=== PATIENT | female | born 1985 | race Caucasian/White ===

== ENCOUNTER 2018-12-05 12:51 | Emergency (ER) | payer BC ==
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
[2018-12-05 13:50] LABS: BLOOD UREA NITROGEN,BUN 14 mg/dL (7.0-18.0); CARBON DIOXIDE,CO2 27.9 mmol/L (21.0-32.0); CHLORIDE,CL 106 mmol/L (98-107); GLUCOSE RANDOM 99 mg/dL (74-106); POTASSIUM,K 4.3 mmol/L (3.5-5.1); SODIUM,NA 143 mmol/L (136-145)
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
[2018-12-05 15:06] VITALS: BP 127/75
== END 2018-12-05 15:06 | disposition home or self-care (01) ==
LOC: MW.ED 12:51
DX: S40.012A Contusion of left shoulder, initial encounter (principal); S80.11XA Contusion of right lower leg, initial encounter; S00.531A Contusion of lip, initial encounter; N39.0 Urinary tract infection, site not specified; C95.90 Leukemia, unspecified not having achieved remission; F41.9 Anxiety disorder, unspecified; F32.9 Major depressive disorder, single episode, unspecified; F17.210 Nicotine dependence, cigarettes, uncomplicated; Z91.048 Other nonmedicinal substance allergy status; Z88.5 Allergy status to narcotic agent; Z88.8 Allergy status to other drugs, medicaments and biological substances; Z85.038 Personal history of other malignant neoplasm of large intestine; Z79.899 Other long term (current) drug therapy; Y04.2XXA Assault by strike against or bumped into by another person, initial encounter
CPT/HCPCS: 36415; 70450; 70450-26; 70486; 70486-26; 71045; 71045-26; 73030-26-LT; 73030-LT; 80053; 81001; 81025; 85025; 85610; 87086; 87088; 87186; 99284; 99284-25

== ENCOUNTER 2019-01-16 14:08 | Emergency (ER) | payer BC ==
[2019-01-16 14:28] VITALS: BP 149/85; PULSE 101
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
== END 2019-01-16 14:51 | disposition home or self-care (01) ==
LOC: MW.ED 14:08
DX: L50.9 Urticaria, unspecified (principal); E66.9 Obesity, unspecified; Z88.5 Allergy status to narcotic agent; Z88.8 Allergy status to other drugs, medicaments and biological substances; Z91.048 Other nonmedicinal substance allergy status; Z85.038 Personal history of other malignant neoplasm of large intestine; Z98.890 Other specified postprocedural states; Z68.42 Body mass index [BMI] 45.0-49.9, adult
CPT/HCPCS: 99282

== ENCOUNTER 2019-05-02 17:12 | Emergency (ER) | payer BC, OTHER ==
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
[2019-05-02] MEDS ORDERED: Ketorolac 60 MG/2 ML SDV IM ONE (17:48)
[2019-05-02 17:53] VITALS: BP 129/75; PULSE 106
--- NOTE | 2019-05-02 18:24 | CR ---
Right ankle: Right ankle: 3 views of the right ankle were obtained. Old healed fractures are noted within the distal tibia and fibula. Plate and screws remain within the fibula. Mild degenerative change is noted within the midfoot. No acute fracture or dislocation is seen. Osteopenia is present. Impression: 1. Findings as noted above. 2. Nothing acute is appreciated. Diagnostic code #2 This report was dictated in [place] Standard Time
== END 2019-05-02 19:10 | disposition home or self-care (01) ==
LOC: MW.ED 17:12
DX: S99.911A Unspecified injury of right ankle, initial encounter (principal); E66.9 Obesity, unspecified; F17.210 Nicotine dependence, cigarettes, uncomplicated; Z88.5 Allergy status to narcotic agent; Z91.09 Other allergy status, other than to drugs and biological substances; W00.0XXA Fall on same level due to ice and snow, initial encounter; X50.1XXA Overexertion from prolonged static or awkward postures, initial encounter
CPT/HCPCS: 73610; 96372; 99283; J1885; 99282

== ENCOUNTER 2019-10-31 21:33 | Emergency (ER) | payer MEDICAID ==
[2019-10-31 21:47] VITALS: BP 138/75; PULSE 102
[2019-10-31] MEDS ORDERED: Ketorolac 60 MG/2 ML SDV IM ONE (21:51)
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
--- NOTE | 2019-10-31 23:04 | CR ---
Indication: Pain Technique: Three views, 4 films Comparison: None Findings: Bones: No clear acute fracture. Deformity of the proximal fibular diaphysis consistent with an old healed fracture. Status post anterior cruciate ligament number ligament repair as well as a bracket at the medial tibial plateau. Posterior lag screws at the distal tibia with the screws backed out approximately 7 millimeters. Joint spaces: Trace knee effusion. No dislocation. Soft tissues: Minimal soft tissue swelling. Dictated by Maulik Lepe MD @ Oct 31 2019 10:58PM Signed by Dr. Maulik Lepe @ Oct 31 2019 11:03PM
== END 2019-10-31 22:56 | disposition home or self-care (01) ==
LOC: MW.ED 21:33
DX: M23.91 Unspecified internal derangement of right knee (principal); F41.9 Anxiety disorder, unspecified; F32.9 Major depressive disorder, single episode, unspecified; E66.9 Obesity, unspecified; Z68.41 Body mass index [BMI] 40.0-44.9, adult; Z91.048 Other nonmedicinal substance allergy status; Z88.8 Allergy status to other drugs, medicaments and biological substances; Z88.5 Allergy status to narcotic agent; Z79.899 Other long term (current) drug therapy
CPT/HCPCS: 73562; 96372; 99283; J1885

== ENCOUNTER 2019-11-29 07:54 | Day surgery (SDC) | payer MEDICAID ==
[~2019-11-29 07:54] MED LIST: Lactated Ringers 1,000 ML IV SCH
[2019-11-29] MEDS ORDERED: Propofol 200 MG/20 ML SDV ONE ×3 (09:01→09:59)
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
--- NOTE | 2019-11-29 10:30 | PCM.POSTAN ---
POST ANESTHESIA ASSESSMENT - MENTAL STATUS Mental Status: Alert - VITAL SIGNS Vital Signs: Last Vital Signs Temp 97.9 F 11/29/19 10:09 Pulse 82 11/29/19 10:26 Resp 20 11/29/19 10:26 BP 145/91 H 11/29/19 10:26 Pulse Ox 95 11/29/19 10:26 - RESPIRATORY Respiratory Status: Respiratory Rate WNL, Airway Patent, O2 Saturation Stable - CARDIOVASCULAR CV Status: Pulse Rate WNL, Blood Pressure Stable - GASTROINTESTINAL GI Status: No Symptoms - POST OP HYDRATION Hydration Status: Adequate & Stable
--- NOTE | 2019-11-29 10:33 | PCM.OPNOTE ---
- General Post-Op/Procedure Note Date of Surgery/Procedure: 11/29/19 Operative Procedure(s): attempted colonoscopy Findings: see [id number] Pre Op Diagnosis: hx of rectal cancer s/p LAR Post-Op Diagnosis: Same Anesthesia Technique: Moderate Sedation Primary Surgeon: Flo Reis Complications: None Condition: Good Free Text/Narrative:: Intake & Output 11/28/19 11/29/19 11/29/19 22:59 06:59 14:59 Intake Total 700 Balance 700
--- NOTE | 2019-11-29 10:37 | PCM48HPAN ---
Post Anesthesia Note - EVALUATION WITHIN 48HRS OF ANESTHETIC Vital Signs in Normal Range: Yes Patient Participated in Evaluation: Yes Respiratory Function Stable: Yes Airway Patent: Yes Cardiovascular Function Stable: Yes Hydration Status Stable: Yes Pain Control Satisfactory: Yes Nausea and Vomiting Control Satisfactory: Yes Mental Status Recovered: Yes Vital Signs: Last Vital Signs Temp 97.9 F 11/29/19 10:09 Pulse 82 11/29/19 10:26 Resp 20 11/29/19 10:26 BP 145/91 H 11/29/19 10:26 Pulse Ox 95 11/29/19 10:26
[2019-11-29 10:44] VITALS: BP 118/85; PULSE 87
--- NOTE | 2019-11-29 16:32 | OR ---
SURGEON: Flo Reis MD DATE OF PROCEDURE: 11/29/2019 PREOPERATIVE DIAGNOSIS: History of rectal cancer, status post low anterior resection. POSTOPERATIVE DIAGNOSIS: Attempted and aborted colonoscopy. PROCEDURE PERFORMED: Attempted and aborted colonoscopy. PRIMARY SURGEON: Flo Reis MD COMPLICATIONS: None. FINDINGS: Throughout the short distance of the colonoscopy, did not find anything that is suspicious. However, we were able to carry out the exam to only a short distance. During the short examination, do not find anything that is abnormal or concerning. DESCRIPTION OF PROCEDURE: The patient was taken to endoscopy room and placed in a decubitus position. Time-out was being called, patient identified, procedure identified. Procedure then started. First started with a digital examination and there was no mass palpated. A well-lubricated colonoscope was gently inserted through the anal opening and gently negotiated and advanced the scope. During the procedure, it was technically a challenge because there was quite a lot of opaque yellow liquid stool that required irrigation, and despite numerous attempts, we still had some difficulty in distending the colon. The scope attempted all the way to 36 cm and was not able to distend the colon and also more challenge because of the complete opaque liquid stool. It is not semi-formed stool, it is completely liquid, but because of the visibility and technically a challenge, at 36 cm the colonoscopy procedure aborted. During the short distance examination, do not find anything that is grossly abnormal or concerning. We will refer the patient to GI for further examination. The patient tolerated the procedure well. There were no intraoperative complications. Dr. Reis present through the whole procedure. LOLA / CHUN /[id number]
== END 2019-11-29 11:10 | disposition home or self-care (01) ==
LOC: MW.SDS 07:54
PROVIDERS: ATTEND Surgery
DX: Z12.11 Encounter for screening for malignant neoplasm of colon (principal); F41.9 Anxiety disorder, unspecified; E78.00 Pure hypercholesterolemia, unspecified; Z85.048 Personal history of other malignant neoplasm of rectum, rectosigmoid junction, and anus; E66.01 Morbid (severe) obesity due to excess calories; Z88.8 Allergy status to other drugs, medicaments and biological substances; Z79.899 Other long term (current) drug therapy; F17.210 Nicotine dependence, cigarettes, uncomplicated; Z68.42 Body mass index [BMI] 45.0-49.9, adult; Z85.6 Personal history of leukemia; Z98.890 Other specified postprocedural states; Z88.5 Allergy status to narcotic agent; Z91.048 Other nonmedicinal substance allergy status
CPT/HCPCS: 81025; J2704; J7120

== ENCOUNTER 2020-01-15 13:14 | Inpatient (IN) | payer MEDICAID, OTHER ==
[2020-01-15] MEDS ORDERED: Sodium Chloride 0.9% 10 ML Syringe FLUSH PRN (13:16)
[2020-01-15] MEDS ORDERED: Sodium Chloride 0.9% 1,000 ML IV ONE (13:16)
[2020-01-15] MEDS ORDERED: Sodium Chloride 0.9% 2.5 ML Syringe FLUSH PRN (13:16)
[2020-01-15] MEDS ORDERED: Ondansetron 4 MG/2 ML SDV IVPUSH ONE (13:22)
[2020-01-15] MEDS ORDERED: HYDROmorphone 1 MG/ML Syringe IVPUSH ONE (13:23)
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
[2020-01-15 13:57] LABS: BLOOD UREA NITROGEN,BUN 8 mg/dL (7.0-18.0); CHLORIDE,CL 99 mmol/L (98-107); GLUCOSE RANDOM 96 mg/dL (74-106); LIPASE 35 U/L (73-393); SODIUM,NA 134 mmol/L (136-145)
[2020-01-15 14:19] LABS: CARBON DIOXIDE,CO2 25.2 mmol/L (21.0-32.0)
[2020-01-15] MEDS ORDERED: Iopamidol 755 MG/ML 500 ML Multipack Bottle IVPUSH ONE (15:58)
--- NOTE | 2020-01-15 16:40 | CT ---
HISTORY: Left lower quadrant pain. TECHNIQUE: CT abdomen and pelvis with IV contrast. COMPARISON: CT abdomen and pelvis 08/23/2017. FINDINGS: Abdomen: No liver lesions. Cholecystectomy. Unchanged bile duct prominence consistent with postcholecystectomy change. No pancreatic mass or pancreatic duct dilation. No spleen lesions. No adrenal nodules. Kidneys enhance symmetrically. No renal mass. No hydronephrosis. Pelvis valuation is limited by artifact from right pelvic surgical hardware. Rectal anastomosis. Wall thickening of the distal sigmoid colon with surrounding fat infiltration. 3 x 2.7 cm cystic structure in the left adnexa abutting the thickened segment of sigmoid colon is likely the left ovary, less likely an abscess. No dilated bowel. Appendix is normal. No significant free fluid. No pneumoperitoneum. No lymphadenopathy. Abdominal aorta is normal caliber. IVC filter. Pelvis: No lymphadenopathy. Musculoskeletal: Right reconstruction with combination of plates and screws. In fusion of the right sacroiliac joint. Degenerative changes of the left sacroiliac joint. Geographic sclerosis in the superior femoral head compatible with osteonecrosis. Degenerative changes of the spine. Lower chest: Mild atelectasis in both lung bases. IMPRESSION: 1. Wall thickening of the distal sigmoid colon with surrounding fat stranding may be due to colitis. 3 cm cystic structure in the left adnexa abutting the thickened segment of sigmoid colon is likely the left ovary, less likely an abscess. In the absence of clinical symptoms of colitis sigmoid mass should be considered and colonoscopy would be recommended. 2. Cholecystectomy. Please note that all CT scans at this facility use dose modulation, iterative reconstruction, and/or weight-based dosing when appropriate to reduce radiation dose to as low as reasonably achievable. Dictated by Prabhu Lizarraga MD @ Jan 15 2020 4:28PM Signed by Dr. Prabhu Lizarraga @ Jan 15 2020 4:38PM
[2020-01-15] MEDS ORDERED: Piperacillin/Tazobactam 4.5 GM in Sodium Chloride 0.9% 100 ML IV ONE (16:51)
[2020-01-15] MEDS ORDERED: HYDROmorphone 2 MG/ML Syringe IVPUSH ONE (16:52)
[2020-01-15] MEDS ORDERED: Ondansetron 4 MG/2 ML SDV IVPUSH PRN (17:47)
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
[2020-01-15] MEDS: HYDROmorphone 2 MG/ML Syringe IVPUSH PRN (20:53)
[2020-01-15] MEDS: Heparin Sodium 5,000 Units/ML Vial SUBCUT SCH (20:54)
[2020-01-15] MEDS: Sodium Chloride 0.9% 1,000 ML IV SCH (20:55)
[2020-01-15] MEDS: Piperacillin/Tazobactam 3.375 GM in Sodium Chloride 0.9% 50 ML IV SCH (22:10)
[2020-01-16] MEDS: HYDROmorphone 2 MG/ML Syringe IVPUSH PRN ×4 (02:21→19:32)
[2020-01-16] MEDS: Heparin Sodium 5,000 Units/ML Vial SUBCUT SCH ×3 (02:22→17:40)
[2020-01-16] MEDS: Piperacillin/Tazobactam 3.375 GM in Sodium Chloride 0.9% 50 ML IV SCH ×4 (04:54→22:08)
[2020-01-16] MEDS: Sodium Chloride 0.9% 1,000 ML IV SCH ×4 (04:55→18:38)
[2020-01-16 06:20] LABS: BLOOD UREA NITROGEN,BUN 9 mg/dL (7.0-18.0); CARBON DIOXIDE,CO2 26.6 mmol/L (21.0-32.0); CHLORIDE,CL 101 mmol/L (98-107); GLUCOSE RANDOM 98 mg/dL (74-106); POTASSIUM,K 3.5 mmol/L (3.5-5.1); SODIUM,NA 137 mmol/L (136-145)
--- NOTE | 2020-01-16 10:14 | PCM.PN ---
- General Info Date of Service: 01/16/20 Admission Dx/Problem (Free Text): Admission Diagnosis/Problem Admission Diagnosis/Problem Colitis Subjective Update: Just received pain medication, reports pain to lower abdomen continues, mildly improved. Not talkative. No chest pain or SOB. No fevers or chills. Functional Status: Reports: Pain Controlled, Ambulating, Urinating - Review of Systems General: Reports: Malaise HEENT: Reports: No Symptoms. Denies: Headaches, Visual Changes Pulmonary: Reports: No Symptoms. Denies: Shortness of Breath Cardiovascular: Reports: No Symptoms. Denies: Chest Pain Gastrointestinal: Reports: Abdominal Pain, Nausea. Denies: Diarrhea, Vomiting Genitourinary: Reports: No Symptoms. Denies: Dysuria, Frequency Musculoskeletal: Reports: No Symptoms Skin: Reports: No Symptoms Neurological: Reports: No Symptoms Psychiatric: Reports: No Symptoms - Patient Data Vitals - Most Recent: Last Vital Signs Temp 97.4 F 01/16/20 08:38 Pulse 107 H 01/16/20 08:38 Resp 18 01/16/20 08:38 BP 100/72 01/16/20 08:38 Pulse Ox 93 L 01/16/20 08:38 Weight - Most Recent: 123.241 kg I&O - Last 24 Hours: Intake & Output 01/15/20 01/16/20 01/16/20 22:59 06:59 14:59 Intake Total 50 Output Total 0 Balance 50 Lab Results Last 24 Hours: Laboratory Results - last 24 hr 01/15/20 01/15/20 01/15/20 Range/Units 13:26 13:26 13:26 WBC 22.40 H (4.0-11.0) K/uL RBC 4.32 (4.30-5.90) M/uL Hgb 13.5 (12.0-16.0) g/dL Hct 41.5 (36.0-46.0) % MCV 96.1 (80.0-98.0) fL MCH 31.3 (27.0-32.0) pg MCHC 32.5 (31.0-37.0) g/dL RDW Std Deviation 51.3 (28.0-62.0) fl RDW Coeff of Dre 14 (11.0-15.0) % Plt Count 239 (150-400) K/uL MPV 8.60 (7.40-12.00) fL Neut % (Auto) 85.0 H (48.0-80.0) % Lymph % (Auto) 8.5 L (16.0-40.0) % [place] % (Auto) 6.2 (0.0-15.0) % Eos % (Auto) 0.2 (0.0-7.0) % Baso % (Auto) 0.1 (0.0-1.5) % Neut # (Auto) 19.0 H (1.4-5.7) K/uL Lymph # (Auto) 1.9 (0.6-2.4) K/uL [place] # (Auto) 1.4 H (0.0-0.8) K/uL Eos # (Auto) 0.1 (0.0-0.7) K/uL Baso # (Auto) 0.0 (0.0-0.1) K/uL Nucleated RBC % 0.0 /100WBC Nucleated RBCs # 0 K/uL Lactate (0.20-2.00) mmol/L Sodium 134 L (136-145) mmol/L Potassium 4.0 (3.5-5.1) mmol/L Chloride 99 (98-107) mmol/L Carbon Dioxide 25.2 (21.0-32.0) mmol/L BUN 8 (7.0-18.0) mg/dL Creatinine 0.7 (0.6-1.0) mg/dL Est Cr Clr Drug Dosing 92.79 mL/min Estimated GFR (MDRD) > 60.0 ml/min Glucose 96 (74-106) mg/dL Calcium 9.1 (8.5-10.1) mg/dL Total Bilirubin 1.3 H (0.2-1.0) mg/dL AST 25 (15-37) IU/L ALT 30 (14-63) IU/L Alkaline Phosphatase 118 H (46-116) U/L Total Protein 7.5 (6.4-8.2) g/dL Albumin 3.6 (3.4-5.0) g/dL Globulin 3.9 (2.6-4.0) g/dL Albumin/Globulin Ratio 0.9 (0.9-1.6) Lipase 35 L (73-393) U/L HCG, Qual NEGATIVE (NEG) Urine Color Urine Appearance Urine pH (5.0-8.0) Ur Specific [place] (1.001-1.035) Urine Protein (NEGATIVE) mg/dL Urine Glucose (UA) (NEGATIVE) mg/dL Urine Ketones (NEGATIVE) mg/dL Urine Occult Blood (NEGATIVE) Urine Nitrite (NEGATIVE) Urine Bilirubin (NEGATIVE) Urine Urobilinogen (<2.0) EU/dL Ur Leukocyte Esterase (NEGATIVE) Urine RBC (0-2/HPF) Urine WBC (0-5/HPF) Ur Epithelial Cells (NONE-FEW) Urine Bacteria (NEGATIVE) Urine Mucus (NONE-MOD) SARS-CoV-2 RNA (MONTY) (NEGATIVE) 01/15/20 01/15/20 01/16/20 Range/Units 14:10 16:50 04:44 WBC (4.0-11.0) K/uL RBC (4.30-5.90) M/uL Hgb (12.0-16.0) g/dL Hct (36.0-46.0) % MCV (80.0-98.0) fL MCH (27.0-32.0) pg MCHC (31.0-37.0) g/dL RDW Std Deviation (28.0-62.0) fl RDW Coeff of Dre (11.0-15.0) % Plt Count (150-400) K/uL MPV (7.40-12.00) fL Neut % (Auto) (48.0-80.0) % Lymph % (Auto) (16.0-40.0) % [place] % (Auto) (0.0-15.0) % Eos % (Auto) (0.0-7.0) % Baso % (Auto) (0.0-1.5) % Neut # (Auto) (1.4-5.7) K/uL Lymph # (Auto) (0.6-2.4) K/uL [place] # (Auto) (0.0-0.8) K/uL Eos # (Auto) (0.0-0.7) K/uL Baso # (Auto) (0.0-0.1) K/uL Nucleated RBC % /100WBC Nucleated RBCs # K/uL Lactate 1.1 (0.20-2.00) mmol/L Sodium (136-145) mmol/L Potassium (3.5-5.1) mmol/L Chloride (98-107) mmol/L Carbon Dioxide (21.0-32.0) mmol/L BUN (7.0-18.0) mg/dL Creatinine (0.6-1.0) mg/dL Est Cr Clr Drug Dosing mL/min Estimated GFR (MDRD) ml/min Glucose (74-106) mg/dL Calcium (8.5-10.1) mg/dL Total Bilirubin (0.2-1.0) mg/dL AST (15-37) IU/L ALT (14-63) IU/L Alkaline Phosphatase (46-116) U/L Total Protein (6.4-8.2) g/dL Albumin (3.4-5.0) g/dL Globulin (2.6-4.0) g/dL Albumin/Globulin Ratio (0.9-1.6) Lipase (73-393) U/L HCG, Qual (NEG) Urine Color YELLOW Urine Appearance HAZY Urine pH 5.5 (5.0-8.0) Ur Specific [place] 1.025 (1.001-1.035) Urine Protein NEGATIVE (NEGATIVE) mg/dL Urine Glucose (UA) NEGATIVE (NEGATIVE) mg/dL Urine Ketones 15 H (NEGATIVE) mg/dL Urine Occult Blood TRACE-INTACT H (NEGATIVE) Urine Nitrite NEGATIVE (NEGATIVE) Urine Bilirubin NEGATIVE (NEGATIVE) Urine Urobilinogen 0.2 (<2.0) EU/dL Ur Leukocyte Esterase SMALL H (NEGATIVE) Urine RBC 0-3 (0-2/HPF) Urine WBC 15-20 (0-5/HPF) Ur Epithelial Cells FEW (NONE-FEW) Urine Bacteria 1+ H (NEGATIVE) Urine Mucus LIGHT (NONE-MOD) SARS-CoV-2 RNA (MONYT) NEGATIVE (NEGATIVE) 01/16/20 01/16/20 Range/Units 05:34 05:34 WBC 21.68 H (4.0-11.0) K/uL RBC 4.02 L (4.30-5.90) M/uL Hgb 12.4 (12.0-16.0) g/dL Hct 39.4 (36.0-46.0) % MCV 98.0 (80.0-98.0) fL MCH 30.8 (27.0-32.0) pg MCHC 31.5 (31.0-37.0) g/dL RDW Std Deviation 52.8 (28.0-62.0) fl RDW Coeff of Dre 15 (11.0-15.0) % Plt Count 226 (150-400) K/uL MPV 8.40 (7.40-12.00) fL Neut % (Auto) 87.4 H (48.0-80.0) % Lymph % (Auto) 6.7 L (16.0-40.0) % [place]eman % (Auto) 5.7 (0.0-15.0) % Eos % (Auto) 0.1 (0.0-7.0) % Baso % (Auto) 0.1 (0.0-1.5) % Neut # (Auto) 19.0 H (1.4-5.7) K/uL Lymph # (Auto) 1.5 (0.6-2.4) K/uL [place] # (Auto) 1.2 H (0.0-0.8) K/uL Eos # (Auto) 0.0 (0.0-0.7) K/uL Baso # (Auto) 0.0 (0.0-0.1) K/uL Nucleated RBC % 0.0 /100WBC Nucleated RBCs # 0 K/uL Lactate (0.20-2.00) mmol/L Sodium 137 (136-145) mmol/L Potassium 3.5 (3.5-5.1) mmol/L Chloride 101 (98-107) mmol/L Carbon Dioxide 26.6 (21.0-32.0) mmol/L BUN 9 (7.0-18.0) mg/dL Creatinine 0.7 (0.6-1.0) mg/dL Est Cr Clr Drug Dosing 92.79 mL/min Estimated GFR (MDRD) > 60.0 ml/min Glucose 98 (74-106) mg/dL Calcium 8.5 (8.5-10.1) mg/dL Total Bilirubin 0.9 (0.2-1.0) mg/dL AST 10 L (15-37) IU/L ALT 26 (14-63) IU/L Alkaline Phosphatase 114 (46-116) U/L Total Protein 6.7 (6.4-8.2) g/dL Albumin 3.0 L (3.4-5.0) g/dL Globulin 3.7 (2.6-4.0) g/dL Albumin/Globulin Ratio 0.8 L (0.9-1.6) Lipase (73-393) U/L HCG, Qual (NEG) Urine Color Urine Appearance Urine pH (5.0-8.0) Ur Specific [place] (1.001-1.035) Urine Protein (NEGATIVE) mg/dL Urine Glucose (UA) (NEGATIVE) mg/dL Urine Ketones (NEGATIVE) mg/dL Urine Occult Blood (NEGATIVE) Urine Nitrite (NEGATIVE) Urine Bilirubin (NEGATIVE) Urine Urobilinogen (<2.0) EU/dL Ur Leukocyte Esterase (NEGATIVE) Urine RBC (0-2/HPF) Urine WBC (0-5/HPF) Ur Epithelial Cells (NONE-FEW) Urine Bacteria (NEGATIVE) Urine Mucus (NONE-MOD) SARS-CoV-2 RNA (MONTY) (NEGATIVE) [place] Results Last 24 Hours: Microbiology 01/15/20 14:20 Anaerobic Blood Culture - Final Blood - Venous - Lab Draw Med Orders - Current: Current Medications Heparin Sodium (Porcine) (Heparin Sodium) 5,000 units SUBCUT Q8H [facility] Last Admin: 01/16/20 02:22 Dose: 5,000 units Documented by: Hydromorphone HCl (Dilaudid) 1 mg IVPUSH Q2H PRN PRN Reason: Pain (severe 7-10) Last Admin: 01/16/20 08:40 Dose: 1 mg Documented by: Piperacillin Sod/Tazobactam (Sod 3.375 gm/ Sodium Chloride) 50 mls @ 100 mls/hr IV Q6H [facility] Last Admin: 01/16/20 04:54 Dose: 100 mls/hr Documented by: Sodium Chloride (Normal Saline) 1,000 mls @ 125 mls/hr IV ASDIRECTED [facility] Last Admin: 01/16/20 04:55 Dose: 125 mls/hr Documented by: Ondansetron HCl (Zofran) 4 mg IVPUSH Q4H PRN PRN Reason: Nausea Sodium Chloride (Saline Flush) 10 ml FLUSH ASDIRECTED PRN PRN Reason: Keep Vein Open Last Admin: 01/15/20 13:36 Dose: 10 ml Documented by: Sodium Chloride (Saline Flush) 2.5 ml FLUSH ASDIRECTED PRN PRN Reason: Keep Vein Open Last Admin: 01/15/20 13:36 Dose: 2.5 ml Documented by: Discontinued Medications Hydromorphone HCl (Dilaudid) 1 mg IVPUSH ONETIME ONE Stop: 01/15/20 13:24 Last Admin: 01/15/20 13:35 Dose: 1 mg Documented by: Hydromorphone HCl (Dilaudid) 0.5 mg IVPUSH ONETIME ONE Stop: 01/15/20 16:53 Last Admin: 01/15/20 17:00 Dose: 0.5 mg Documented by: Sodium Chloride (Normal Saline) 1,000 mls @ 999 mls/hr IV STAT ONE Stop: 01/15/20 14:16 Last Admin: 01/15/20 13:34 Dose: 999 mls/hr Documented by: Piperacillin Sod/Tazobactam (Sod 4.5 gm/ Sodium Chloride) 100 mls @ 100 mls/hr IV ONETIME ONE Stop: 01/15/20 17:50 Last Admin: 01/15/20 17:01 Dose: 100 mls/hr Documented by: Iopamidol (Isovue Multipack-370 (76%)) 100 ml IVPUSH ONETIME ONE Stop: 01/15/20 15:59 Last Admin: 01/15/20 15:59 Dose: 100 ml Documented by: Ondansetron HCl (Zofran) 4 mg IVPUSH ONETIME ONE Stop: 01/15/20 13:23 Last Admin: 01/15/20 13:35 Dose: 4 mg Documented by: - Exam General: Alert, Oriented, No Acute Distress. No: Cooperative (not talkative, bu t when directly asked something she answers, drowsy from pain medications) Lungs: Clear to Auscultation, Normal Respiratory Effort Cardiovascular: Regular Rate, Regular Rhythm GI/Abdominal Exam: Normal Bowel Sounds, Soft, Non-Tender (to palaption but reports pain is there when she lays down), Other (obese abdomen) Extremities: Normal Inspection, Normal Range of Motion, Non-Tender, Pedal Edema (mild +1 non pitting) Wound/Incisions: Other (chronic skin discoloration to bilateral lower legs) Neurological: No New Focal Deficit Psy/Mental Status: Alert, Normal Affect, Normal Mood Sepsis Event Note - Evaluation Sepsis Screening Result: No Definite Risk - Focused Exam Vital Signs: Vital Signs Temp Pulse Resp BP Pulse Ox 01/16/20 08:38 97.4 F 107 H 18 100/72 93 L 01/16/20 05:02 97.8 F 97 14 113/74 90 L 01/16/20 00:33 97.8 F 114 H 18 103/64 92 L - Problem List & Annotations (1) History of colon cancer SNOMED Code(s): 511486777 Code(s): Z85.038 - PERSONAL HISTORY OF MALIGNANT NEOPLASM OF LARGE INTESTINE Status: Acute Current Visit: Yes (2) Colitis SNOMED Code(s): 78928235 Code(s): K52.9 - NONINFECTIVE GASTROENTERITIS AND COLITIS, UNSPECIFIED Status: Acute Current Visit: Yes (3) Abdominal pain SNOMED Code(s): 60762087 Code(s): R10.9 - UNSPECIFIED ABDOMINAL PAIN Status: Acute Priority: High Current Visit: No Qualifiers: Abdominal location: upper abdomen, unspecified Qualified Code(s): R10.10 - Upper abdominal pain, unspecified (4) Obesity (BMI 30-39.9) SNOMED Code(s): 698140208, 527502365 Code(s): E66.9 - OBESITY, UNSPECIFIED Status: Acute Priority: Medium Current Visit: No (5) UTI (urinary tract infection) SNOMED Code(s): 40218392 Code(s): N39.0 - URINARY TRACT INFECTION, SITE NOT SPECIFIED Status: Acute Current Visit: No Qualifiers: Urinary tract infection type: site unspecified Hematuria presence: without hematuria Qualified Code(s): N39.0 - Urinary tract infection, site not specified - Problem List Review Problem List Initiated/Reviewed/Updated: Yes - My Orders Last 24 Hours: My Active Orders 01/16/20 09:17 Transvaginal Non OB [US] Urgent - Plan Plan:: 34 yo female admitted with colitis. 1. Colitis - Continue bowel rest - IV fluids - Continue Zosyn. - Pain control with IV Dilaudid. - Cultures are pending, still awaiting collection for stool - Did have possible cystis L ovary, will obtain transvaginal US today to further evaluate VTE prophylaxis: Heparin Dispo: 2 days
[2020-01-16] MEDS ORDERED: Sodium Chloride 0.9% 2.5 ML Syringe FLUSH PRN (10:15)
--- NOTE | 2020-01-16 16:07 | US ---
INDICATION: Pain. Cystic left ovary. TECHNIQUE: Transabdominal and transvaginal scanning was performed. Transvaginal scanning was performed to optimally evaluate the endometrium and adnexa. Ovarian blood flow was evaluated with color-flow and pulsed Doppler. COMPARISON: Abdomen/pelvis CT of 01/15/2020 not available for comparison at this time. FINDINGS: The uterus is normal in size and shape. The uterus measures 7.7 x 6.3 x 3.6 cm. No uterine mass is evident. The endometrial stripe is normal in thickness at 3 mm. A complex, likely hemorrhagic 2.3 cm left ovarian cyst. The right ovary measures 2.0 x 1.9 x 1.7 cm and left 3.7 x 3.7 x 3.6 cm. Ovarian blood flow is demonstrated with color-flow and pulsed Doppler. No adnexal mass is evident. No free fluid is demonstrated. IMPRESSION: Complex, likely hemorrhagic 2.3 cm left ovarian cyst. Dictated by Mo Ford MD @ Jan 16 2020 3:57PM Signed by Dr. Mo Ford @ Jan 16 2020 4:05PM
[2020-01-16] MEDS: Ibuprofen 200 MG Tab PO PRN (22:45)
[2020-01-17] MEDS: Sodium Chloride 0.9% 1,000 ML IV SCH ×2 (00:26→01:48)
[2020-01-17] MEDS: Heparin Sodium 5,000 Units/ML Vial SUBCUT SCH ×2 (01:46→10:57)
[2020-01-17] MEDS: HYDROmorphone 2 MG/ML Syringe IVPUSH PRN ×2 (01:47→04:55)
[2020-01-17] MEDS: Piperacillin/Tazobactam 3.375 GM in Sodium Chloride 0.9% 50 ML IV SCH ×2 (04:49→10:55)
[2020-01-17 05:38] VITALS: PULSE 94
[2020-01-17 06:36] LABS: BLOOD UREA NITROGEN,BUN 7 mg/dL (7.0-18.0); CARBON DIOXIDE,CO2 28.2 mmol/L (21.0-32.0); CHLORIDE,CL 102 mmol/L (98-107); GLUCOSE RANDOM 73 mg/dL (74-106); POTASSIUM,K 3.1 mmol/L (3.5-5.1); SODIUM,NA 139 mmol/L (136-145)
[2020-01-17 08:44] VITALS: BP 137/90
--- NOTE | 2020-01-17 09:57 | PCM.PN ---
- General Info Date of Service: 01/17/20 - Review of Systems Systems Review Comment:: patient reports she is feeling better, abdominal pain has improved. patient would like to be discharge home as bed is uncomfortable - Patient Data Vitals - Most Recent: Last Vital Signs Temp 36.6 C 01/17/20 08:00 Pulse 94 01/17/20 04:00 Resp 18 01/17/20 08:00 BP 137/90 01/17/20 08:00 Pulse Ox 96 01/17/20 08:00 Weight - Most Recent: 113.398 kg I&O - Last 24 Hours: Intake & Output 01/16/20 01/17/20 01/17/20 22:59 06:59 14:59 Intake Total 2586 Output Total 850 Balance 1736 Lab Results Last 24 Hours: Laboratory Results - last 24 hr 01/17/20 01/17/20 Range/Units 05:51 05:51 WBC 15.07 H (4.0-11.0) K/uL RBC 4.16 L (4.30-5.90) M/uL Hgb 13.2 (12.0-16.0) g/dL Hct 40.3 (36.0-46.0) % MCV 96.9 (80.0-98.0) fL MCH 31.7 (27.0-32.0) pg MCHC 32.8 (31.0-37.0) g/dL RDW Std Deviation 49.8 (28.0-62.0) fl RDW Coeff of Dre 14 (11.0-15.0) % Plt Count 256 (150-400) K/uL MPV 8.70 (7.40-12.00) fL Neut % (Auto) 81.8 H (48.0-80.0) % Lymph % (Auto) 11.0 L (16.0-40.0) % [place] % (Auto) 6.2 (0.0-15.0) % Eos % (Auto) 0.9 (0.0-7.0) % Baso % (Auto) 0.1 (0.0-1.5) % Neut # (Auto) 12.3 H (1.4-5.7) K/uL Lymph # (Auto) 1.7 (0.6-2.4) K/uL [place] # (Auto) 0.9 H (0.0-0.8) K/uL Eos # (Auto) 0.1 (0.0-0.7) K/uL Baso # (Auto) 0.0 (0.0-0.1) K/uL Nucleated RBC % 0.0 /100WBC Nucleated RBCs # 0 K/uL Sodium 139 (136-145) mmol/L Potassium 3.1 L (3.5-5.1) mmol/L Chloride 102 (98-107) mmol/L Carbon Dioxide 28.2 (21.0-32.0) mmol/L BUN 7 (7.0-18.0) mg/dL Creatinine 0.5 L (0.6-1.0) mg/dL Est Cr Clr Drug Dosing 129.91 mL/min Estimated GFR (MDRD) > 60.0 ml/min Glucose 73 L (74-106) mg/dL Calcium 8.7 (8.5-10.1) mg/dL Magnesium 1.9 (1.8-2.4) mg/dL Christian Results Last 24 Hours: Microbiology 01/15/20 14:20 Aerobic Blood Culture - Preliminary Blood - Venous - Lab Draw NO GROWTH AFTER 1 DAY Anaerobic Blood Culture - Final 01/15/20 14:10 Aerobic Blood Culture - Preliminary Blood - Venous NO GROWTH AFTER 1 DAY Anaerobic Blood Culture - Preliminary NO GROWTH AFTER 1 DAY Med Orders - Current: Current Medications Heparin Sodium (Porcine) (Heparin Sodium) 5,000 units SUBCUT Q8H [facility] Last Admin: 01/17/20 01:46 Dose: 5,000 units Documented by: Piperacillin Sod/Tazobactam (Sod 3.375 gm/ Sodium Chloride) 50 mls @ 100 mls/hr IV Q6H [facility] Last Admin: 01/17/20 04:49 Dose: 100 mls/hr Documented by: Sodium Chloride (Normal Saline) 1,000 mls @ 125 mls/hr IV Q8H [facility] Last Admin: 01/17/20 01:48 Dose: Not Given Documented by: Ibuprofen (Motrin) 200 mg PO Q6H PRN PRN Reason: Headache Last Admin: 01/16/20 22:45 Dose: 200 mg Documented by: Ondansetron HCl (Zofran) 4 mg IVPUSH Q4H PRN PRN Reason: Nausea Sodium Chloride (Saline Flush) 2.5 ml FLUSH ASDIRECTED PRN PRN Reason: Keep Vein Open Discontinued Medications Hydromorphone HCl (Dilaudid) 1 mg IVPUSH ONETIME ONE Stop: 01/15/20 13:24 Last Admin: 01/15/20 13:35 Dose: 1 mg Documented by: Hydromorphone HCl (Dilaudid) 0.5 mg IVPUSH ONETIME ONE Stop: 01/15/20 16:53 Last Admin: 01/15/20 17:00 Dose: 0.5 mg Documented by: Hydromorphone HCl (Dilaudid) 1 mg IVPUSH Q2H PRN PRN Reason: Pain (severe 7-10) Last Admin: 01/17/20 04:55 Dose: 1 mg Documented by: Sodium Chloride (Normal Saline) 1,000 mls @ 999 mls/hr IV STAT ONE Stop: 01/15/20 14:16 Last Admin: 01/15/20 13:34 Dose: 999 mls/hr Documented by: Piperacillin Sod/Tazobactam (Sod 4.5 gm/ Sodium Chloride) 100 mls @ 100 mls/hr IV ONETIME ONE Stop: 01/15/20 17:50 Last Admin: 01/15/20 17:01 Dose: 100 mls/hr Documented by: Sodium Chloride (Normal Saline) 1,000 mls @ 125 mls/hr IV ASDIRECTED [facility] Last Admin: 01/16/20 04:55 Dose: 125 mls/hr Documented by: Iopamidol (Isovue Multipack-370 (76%)) 100 ml IVPUSH ONETIME ONE Stop: 01/15/20 15:59 Last Admin: 01/15/20 15:59 Dose: 100 ml Documented by: Ondansetron HCl (Zofran) 4 mg IVPUSH ONETIME ONE Stop: 01/15/20 13:23 Last Admin: 01/15/20 13:35 Dose: 4 mg Documented by: Sodium Chloride (Saline Flush) 10 ml FLUSH ASDIRECTED PRN PRN Reason: Keep Vein Open Last Admin: 01/15/20 13:36 Dose: 10 ml Documented by: Sodium Chloride (Saline Flush) 2.5 ml FLUSH ASDIRECTED PRN PRN Reason: Keep Vein Open Last Admin: 01/15/20 13:36 Dose: 2.5 ml Documented by: - Exam General: Alert, Oriented Neck: Supple Lungs: Clear to Auscultation, Normal Respiratory Effort Cardiovascular: Regular Rate, Regular Rhythm GI/Abdominal Exam: Normal Bowel Sounds, Soft, Non-Tender, No Distention Extremities: Non-Tender, No Pedal Edema Skin: Warm, Dry, Intact Neurological: No New Focal Deficit Sepsis Event Note - Evaluation Sepsis Screening Result: No Definite Risk - Focused Exam Vital Signs: Vital Signs Temp Pulse Resp BP Pulse Ox 01/17/20 08:00 36.6 C 18 137/90 96 01/17/20 04:00 36.1 C 94 18 112/68 93 L 01/17/20 01:51 36.4 C 106 H 18 95/62 95 01/16/20 22:00 36.2 C 85 16 107/66 92 L - Problem List Review Problem List Initiated/Reviewed/Updated: Yes - My Orders Last 24 Hours: My Active Orders 01/16/20 22:36 Ibuprofen [Motrin] 200 mg PO Q6H PRN 01/17/20 Lunch Advance Diet Instructions [DIET] - Plan Plan:: 34 yo female admitted with colitis. Treating with IV zosyn. pelvic ultrasound showed hemorrhagic cyst on left ovary. Will advance diet and if tolerating likely discharge home later today.
[2020-01-17] MEDS ORDERED: Sodium Chloride 0.9% with KCl 1,000 ML IV SCH (10:45)
[2020-01-17] MEDS: Ibuprofen 200 MG Tab PO PRN (10:55)
[2020-01-17] MEDS ORDERED: Potassium Chloride 20 MEQ Tab.ER PO ONE (12:38)
--- NOTE | 2020-01-17 12:49 | PCM.DCSUM1 ---
Discharge Summary - Discharge Data Discharge Date: 01/17/20 Discharge Disposition: Home, Self-Care 01 Condition: Good - Referral to Home Health Primary Care Physician: PCP None - Patient Summary/Data Hospital Course: 34 yo female with pmh of colon cancer s/p resection in 2008 who presented with three day history of left lower quadrant pain. In the ED she was noted to have a white count of 22,000. Sh had a CT scan of abdomen and pelvis which was noted to have thickened sigmoid bowel wall and stranding. Patient also had a transvaginal ultrasound which reported possible left hemorrhagic ovarian cyst. She was admitted for colitis and treated with Zosyn. She had IV Dilaudid for pain control. Today she is feeling better and tolerating an oral diet. She is requesting discharge. She was discharged with Ciprofloxacin and Flagyl for another ten days. She is to follow up with [facility]. - Patient Instructions Diet: Usual Diet as Tolerated Activity: As Tolerated Notify Provider of: Fever, Increased Pain, Nausea and/or Vomiting - Discharge Plan Prescriptions/Med Rec: Ciprofloxacin HCl [Cipro] 500 mg PO BID #20 tablet metroNIDAZOLE [Flagyl] 500 mg PO TID #30 tablet Home Medications: Home Meds Ciprofloxacin HCl [Cipro] 500 mg PO BID #20 tablet 01/17/20 [Rx] metroNIDAZOLE [Flagyl] 500 mg PO TID #30 tablet 01/17/20 [Rx] Patient Handouts: Colitis, Ciprofloxacin tablets, Metronidazole tablets or capsules Forms: ED Department Discharge Referrals: Mateus Kenney MD [Physician] - 01/24/20 8:30 am (Please arrive 15mins early. Bring ID, insurance information and own facemask.) - Discharge Summary/Plan Comment DC Time >30 min.: No - Patient Data Vitals - Most Recent: Last Vital Signs Temp 36.6 C 01/17/20 08:00 Pulse 94 01/17/20 04:00 Resp 18 01/17/20 08:00 BP 137/90 01/17/20 08:00 Pulse Ox 96 01/17/20 08:00 Weight - Most Recent: 113.398 kg I&O - Last 24 hours: Intake & Output 01/16/20 01/17/20 01/17/20 22:59 06:59 14:59 Intake Total 2586 Output Total 850 Balance 1736 Lab Results - Last 24 hrs: Laboratory Results - last 24 hr 01/17/20 01/17/20 Range/Units 05:51 05:51 WBC 15.07 H (4.0-11.0) K/uL RBC 4.16 L (4.30-5.90) M/uL Hgb 13.2 (12.0-16.0) g/dL Hct 40.3 (36.0-46.0) % MCV 96.9 (80.0-98.0) fL MCH 31.7 (27.0-32.0) pg MCHC 32.8 (31.0-37.0) g/dL RDW Std Deviation 49.8 (28.0-62.0) fl RDW Coeff of Dre 14 (11.0-15.0) % Plt Count 256 (150-400) K/uL MPV 8.70 (7.40-12.00) fL Neut % (Auto) 81.8 H (48.0-80.0) % Lymph % (Auto) 11.0 L (16.0-40.0) % [place] % (Auto) 6.2 (0.0-15.0) % Eos % (Auto) 0.9 (0.0-7.0) % Baso % (Auto) 0.1 (0.0-1.5) % Neut # (Auto) 12.3 H (1.4-5.7) K/uL Lymph # (Auto) 1.7 (0.6-2.4) K/uL [place] # (Auto) 0.9 H (0.0-0.8) K/uL Eos # (Auto) 0.1 (0.0-0.7) K/uL Baso # (Auto) 0.0 (0.0-0.1) K/uL Nucleated RBC % 0.0 /100WBC Nucleated RBCs # 0 K/uL Sodium 139 (136-145) mmol/L Potassium 3.1 L (3.5-5.1) mmol/L Chloride 102 (98-107) mmol/L Carbon Dioxide 28.2 (21.0-32.0) mmol/L BUN 7 (7.0-18.0) mg/dL Creatinine 0.5 L (0.6-1.0) mg/dL Est Cr Clr Drug Dosing 129.91 mL/min Estimated GFR (MDRD) > 60.0 ml/min Glucose 73 L (74-106) mg/dL Calcium 8.7 (8.5-10.1) mg/dL Magnesium 1.9 (1.8-2.4) mg/dL GOLDY Results - Last 24 hrs: Microbiology 01/15/20 14:20 Aerobic Blood Culture - Preliminary Blood - Venous - Lab Draw NO GROWTH AFTER 1 DAY Anaerobic Blood Culture - Final 01/15/20 14:10 Aerobic Blood Culture - Preliminary Blood - Venous NO GROWTH AFTER 1 DAY Anaerobic Blood Culture - Preliminary NO GROWTH AFTER 1 DAY Med Orders - Current: Current Medications Heparin Sodium (Porcine) (Heparin Sodium) 5,000 units SUBCUT Q8H [facility] Last Admin: 01/17/20 10:57 Dose: Not Given Documented by: Piperacillin Sod/Tazobactam (Sod 3.375 gm/ Sodium Chloride) 50 mls @ 100 mls/hr IV Q6H [facility] Last Admin: 01/17/20 10:55 Dose: 100 mls/hr Documented by: Sodium Chloride (Normal Saline) 1,000 mls @ 125 mls/hr IV Q8H [facility] Last Admin: 01/17/20 01:48 Dose: Not Given Documented by: Potassium Chloride/Sodium Chloride (Normal Saline With 40 Meq Kcl) 1,000 mls @ 150 mls/hr IV ASDIRECTED [facility] Stop: 01/17/20 17:24 Ibuprofen (Motrin) 200 mg PO Q6H PRN PRN Reason: Headache Last Admin: 01/17/20 10:55 Dose: 200 mg Documented by: Ondansetron HCl (Zofran) 4 mg IVPUSH Q4H PRN PRN Reason: Nausea Sodium Chloride (Saline Flush) 2.5 ml FLUSH ASDIRECTED PRN PRN Reason: Keep Vein Open Last Admin: 01/17/20 10:56 Dose: 2.5 ml Documented by: Discontinued Medications Hydromorphone HCl (Dilaudid) 1 mg IVPUSH ONETIME ONE Stop: 01/15/20 13:24 Last Admin: 01/15/20 13:35 Dose: 1 mg Documented by: Hydromorphone HCl (Dilaudid) 0.5 mg IVPUSH ONETIME ONE Stop: 01/15/20 16:53 Last Admin: 01/15/20 17:00 Dose: 0.5 mg Documented by: Hydromorphone HCl (Dilaudid) 1 mg IVPUSH Q2H PRN PRN Reason: Pain (severe 7-10) Last Admin: 01/17/20 04:55 Dose: 1 mg Documented by: Sodium Chloride (Normal Saline) 1,000 mls @ 999 mls/hr IV STAT ONE Stop: 01/15/20 14:16 Last Admin: 01/15/20 13:34 Dose: 999 mls/hr Documented by: Piperacillin Sod/Tazobactam (Sod 4.5 gm/ Sodium Chloride) 100 mls @ 100 mls/hr IV ONETIME ONE Stop: 01/15/20 17:50 Last Admin: 01/15/20 17:01 Dose: 100 mls/hr Documented by: Sodium Chloride (Normal Saline) 1,000 mls @ 125 mls/hr IV ASDIRECTED [facility] Last Admin: 01/16/20 04:55 Dose: 125 mls/hr Documented by: Iopamidol (Isovue Multipack-370 (76%)) 100 ml IVPUSH ONETIME ONE Stop: 01/15/20 15:59 Last Admin: 01/15/20 15:59 Dose: 100 ml Documented by: Ondansetron HCl (Zofran) 4 mg IVPUSH ONETIME ONE Stop: 01/15/20 13:23 Last Admin: 01/15/20 13:35 Dose: 4 mg Documented by: Potassium Chloride (Klor-Con M20) 40 meq PO ONETIME ONE Stop: 01/17/20 12:39 Sodium Chloride (Saline Flush) 10 ml FLUSH ASDIRECTED PRN PRN Reason: Keep Vein Open Last Admin: 01/15/20 13:36 Dose: 10 ml Documented by: Sodium Chloride (Saline Flush) 2.5 ml FLUSH ASDIRECTED PRN PRN Reason: Keep Vein Open Last Admin: 01/15/20 13:36 Dose: 2.5 ml Documented by:
== END 2020-01-17 13:45 | disposition home or self-care (01) | DRG 392 ==
LOC: MW.ED 13:14 → MW.MS 18:22
PROVIDERS: ADMIT Internal Medicine; ATTEND Internal Medicine
DX: K52.9 Noninfective gastroenteritis and colitis, unspecified (principal); N39.0 Urinary tract infection, site not specified; Z68.41 Body mass index [BMI] 40.0-44.9, adult; N83.202 Unspecified ovarian cyst, left side; E66.9 Obesity, unspecified; G47.30 Sleep apnea, unspecified; M19.90 Unspecified osteoarthritis, unspecified site; F41.9 Anxiety disorder, unspecified; Z20.828 Contact with and (suspected) exposure to other viral communicable diseases; F32.9 Major depressive disorder, single episode, unspecified; F17.200 Nicotine dependence, unspecified, uncomplicated; Z85.038 Personal history of other malignant neoplasm of large intestine; Z91.09 Other allergy status, other than to drugs and biological substances; Z88.5 Allergy status to narcotic agent; Z88.6 Allergy status to analgesic agent; Z90.49 Acquired absence of other specified parts of digestive tract
CPT/HCPCS: 36415; 74177; 74177-26; 76830; 76830-26; 80048; 80053; 81001; 83605; 83690; 83735; 84703; 85025; 87040; 87086; 96374; 96375; 99221; 99231; 99238; 99283; 99285-25; A9270-GY; J1170; J1644; J2405; J2543; J7030; J7050; Q9967; U0002

== ENCOUNTER 2020-01-31 15:13 | Emergency (ER) | payer MEDICAID, OTHER ==
[2020-01-31 15:37] VITALS: BP 114/78; PULSE 127
[2020-01-31] MEDS ORDERED: HYDROmorphone 1 MG/ML Syringe IVPUSH ONE ×2 (15:37→19:12)
[2020-01-31] MEDS ORDERED: Sodium Chloride 0.9% 1,000 ML IV ONE (15:37)
[2020-01-31] MEDS ORDERED: Ondansetron 4 MG/2 ML SDV IVPUSH ONE (15:40)
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
[2020-01-31 16:38] LABS: BLOOD UREA NITROGEN,BUN 7 mg/dL (7.0-18.0); CHLORIDE,CL 98 mmol/L (98-107); GLUCOSE RANDOM 95 mg/dL (74-106); LIPASE 52 U/L (73-393); POTASSIUM,K 3.8 mmol/L (3.5-5.1); SODIUM,NA 134 mmol/L (136-145)
[2020-01-31] MEDS ORDERED: Iopamidol 755 MG/ML 500 ML Multipack Bottle IVPUSH STA (17:18)
--- NOTE | 2020-01-31 17:48 | CT ---
Indication: Abdominal pain Technique: Volumetric multidetector CT images of the abdomen and pelvis were obtained after the administration of intravenous contrast. 100 cc Isovue 370 Comparison: CT abdomen and pelvis January 15, 2020 Findings: There is dependent basilar atelectasis appreciated with out evidence of dense consolidation. The liver is mildly prominence with intrahepatic biliary ductal dilatation. This is similar to previous exam. The portal vein is patent. The gallbladder is surgically absent. There is mild wrist were dilatation of the common bile duct. The spleen is normal in enhancement and size. The stomach and duodenum are grossly unremarkable. The pancreas is normal in enhancement without significant atrophy. The adrenal glands are unremarkable. There is interval development of left-sided hydronephrosis and hydroureter with a delayed nephrogram otherwise, there is preserved corticomedullary differentiation. There is no evidence of distal obstructing calculus. There is interval development of focal thickening and pericolonic inflammatory change of the rectosigmoid colon with demonstration of a rim enhancing fluid collection measuring up to 5.9 x 4.4 centimeters in greatest dimension with likely involvement of the right ureter. This area is mildly limited in evaluation due to extensive beam hardening artifact from adjacent pelvic reconstruction hardware. The appendix is within normal limits. There is no significant mesenteric, retroperitoneal, or pelvic sidewall lymph nodes. The aorta is nonaneurysmal. There is no significant atherosclerotic disease appreciated. There is an IVC filter again noted. Evaluation of other pelvic viscera is somewhat limited due to beam hardening artifact and in [place] and inflammatory change. There is no free fluid or free air. Postoperative changes of the anterior abdominal wall are again noted. The lumbar vertebral body heights are grossly maintained in stable alignment with mild degenerative disc disease. Impression: Interval development of a large, irregularly loculated fluid collection measuring 5.9 x 4.4 centimeters within the left pelvis likely representing a contained abscess of ruptured diverticulitis. There is involvement of the distal ureter with proximal hydronephrosis and hydroureter with delayed nephrogram. Findings discussed with Dr. Reddy at 5:45 p.m. 01/31/[address] note that all CT scans at this facility use dose modulation, iterative reconstruction, and/or weight-based dosing when appropriate to reduce radiation dose to as low as reasonably achievable. Dictated by Evin Heredia MD @ Jan 31 2020 5:33PM Signed by Dr. Evin Heredia @ Jan 31 2020 5:46PM
[2020-01-31] MEDS ORDERED: Piperacillin/Tazobactam 4.5 GM in Sodium Chloride 0.9% 100 ML IV ONE (18:14)
[2020-01-31] MEDS ORDERED: HYDROmorphone 1 MG/ML Syringe ONE (19:10)
== END 2020-01-31 20:13 ==
LOC: MW.ED 15:13
DX: N73.9 Female pelvic inflammatory disease, unspecified (principal); E66.9 Obesity, unspecified; D72.829 Elevated white blood cell count, unspecified; Z20.828 Contact with and (suspected) exposure to other viral communicable diseases; Z88.5 Allergy status to narcotic agent; Z88.8 Allergy status to other drugs, medicaments and biological substances; Z91.048 Other nonmedicinal substance allergy status
CPT/HCPCS: 36415; 74177; 80053; 81001; 81025; 83605; 83690; 85025; 87040; 87086; 87088; 87186; 87635; 96365; 96367; 96375; 96376; 99285; J1170; J2405; J2543; J3370; J7030; J7050; Q9967; U0002